=== PATIENT | female | born 1955 | race Caucasian/White ===

== ENCOUNTER 2018-05-12 11:52 | Emergency (ER) | payer BC ==
[2018-05-12 12:06] VITALS: RESP 18
[2018-05-12] MEDS ORDERED: SODIUM CHLORIDE 0.9% 1,000 ML IV STA (12:18)
--- NOTE | 2018-05-12 12:26 | ED ---
General Adult HPI - General Chief complaint: Back Pain/Injury Stated complaint: Kidney Stones Time Seen by Provider: 05/12/18 12:09 Source: patient, RN notes reviewed Mode of arrival: ambulatory Limitations: no limitations - History of Present Illness Initial comments: 62-year-old female presents to the emergency department for a chief complaint of right-sided low back pain 4 days. Patient was diagnosed one month ago with a kidney stone on the left side. Left side pain has significantly improved but right side pain started 4 days ago. Patient describes the pain as an aching pain that sometimes radiates down to her right hip. Patient states walking makes it worse. Patient denies nausea or vomiting at this time. Patient denies any recent diarrhea. Patient last had a bowel movement today and it was of normal consistency. Patient denies any abdominal pain. Patient has had back surgery in the past. Patient denies any injuries to the right hip. Patient states she saw her primary care provider for this 3 days ago and was told to follow-up with urology. Patient attempted to make an appointment with urology but they could not get her in until 6 weeks from now. Patient has no other complaints at this time including shortness of breath, chest pain, nausea or vomiting, headache, or visual changes. - Related Data Home Medications Medication Instructions Recorded Confirmed Levothyroxine Sodium [Synthroid] 137 mcg PO DAILY 05/12/18 05/12/18 Previous Rx's Medication Instructions Recorded Acetaminophen [Tylenol] 500 mg PO Q4-6H PRN #20 tab 05/12/18 Ibuprofen [Motrin] 600 mg PO Q8HR PRN #20 tab 05/12/18 Allergies Allergy/AdvReac Type Severity Reaction Status Date / Time No Known Allergies Allergy Verified 05/12/18 12:26 Review of Systems ROS Statement: Those systems with pertinent positive or pertinent negative responses have been documented in the HPI. ROS Other: All systems not noted in ROS Statement are negative. Past Medical History Past Medical History: Thyroid Disorder History of Any Multi-Drug Resistant Organisms: None Reported Past Surgical History: Back Surgery, Hysterectomy Past Psychological History: No Psychological Hx Reported Smoking Status: Current every day smoker Past Alcohol Use History: Rare Past Drug Use History: None Reported General Exam Limitations: no limitations General appearance: alert, in no apparent distress Eye exam: Present: normal appearance, PERRL, EOMI. Absent: scleral icterus, conjunctival injection, periorbital swelling ENT exam: Present: normal exam, normal oropharynx, mucous membranes moist, TM's normal bilaterally, normal external ear exam Neck exam: Present: normal inspection, full ROM. Absent: tenderness, meningismus, lymphadenopathy Respiratory exam: Present: normal lung sounds bilaterally. Absent: respiratory distress, wheezes, rales, rhonchi, stridor Cardiovascular Exam: Present: regular rate, normal rhythm, normal heart sounds. Absent: systolic murmur, diastolic murmur, rubs, gallop, clicks GI/Abdominal exam: Present: soft, normal bowel sounds. Absent: distended, tenderness (No tenderness in the abdomen to light or deep palpation), guarding, rebound, rigid, other (Negative obturator, psoas signs. No McBurney point tenderness) Back exam: Present: full ROM (Full range of motion of the pain in the right lower back is exacerbated with flexion of the right hip), tenderness ( Tenderness to the right SI joint tenderness to the right SI joint). Absent: CVA tenderness (R), CVA tenderness (L), vertebral tenderness (No tenderness over the lumbar spine) Course Vital Signs 05/12/18 12:03 Temperature 98.3 F Pulse Rate 57 L Respiratory 18 Rate Blood Pressure 153/77 O2 Sat by Pulse 99 Oximetry Medical Decision Making - Medical Decision Making 62-year-old female presents to the emergency department for right low back pain 4 days. Patient was diagnosed with a left-sided kidney stone 1 month which has resolved. Patient thinks she has a right-sided kidney stone at this point. Patient saw primary care provider for this and was told to follow-up with urology. She cannot get an appointment until 6 weeks from now. Patient states walking makes it worse. Patient denies abdominal pain. No fevers or chills. On exam patient has some right-sided back pain over the right SI joint. Pain is exacerbated with flexion of the right hip. No tenderness to palpation of the abdomen. CBC and CMP are unremarkable. Amylase lipase WNL. Urinalysis shows no blood or signs of infection. X-ray of the right hip and pelvis shows no acute fractures or dislocations. Postsurgical changes of the lumbosacral region. No focal lytic or sclerotic lesion in the proximal right femur. Moderate-sized spur super or lateral aspect of the acetabulum right hip is present. Lumbar spine x-ray shows severe degenerative disc disease and L4 to L5. CT not needed at this point as there is no blood in urine and patient denies abdominal pain and there is no abdominal tenderness on exam. Patient likely has right hip pain causing SI joint pain. She will follow up with orthopedic doctor that she is already established with. She will return if she has any worsening symptoms. - Lab Data Result diagrams: 05/12/18 12:35 05/12/18 12:35 Lab Results 05/12/18 05/12/18 05/12/18 Range/Units 12:35 12:35 12:35 WBC 5.0 (3.8-10.6) k/uL RBC 4.43 (3.80-5.40) m/uL Hgb 14.6 (11.4-16.0) gm/dL Hct 41.5 (34.0-46.0) % MCV 93.7 (80.0-100.0) fL MCH 32.9 (25.0-35.0) pg MCHC 35.2 (31.0-37.0) g/dL RDW 11.9 (11.5-15.5) % Plt Count 221 (150-450) k/uL Neutrophils % 60 % Lymphocytes % 29 % Monocytes % 6 % Eosinophils % 2 % Basophils % 1 % Neutrophils # 3.0 (1.3-7.7) k/uL Lymphocytes # 1.5 (1.0-4.8) k/uL Monocytes # 0.3 (0-1.0) k/uL Eosinophils # 0.1 (0-0.7) k/uL Basophils # 0.0 (0-0.2) k/uL Sodium 143 (137-145) mmol/L Potassium 4.0 (3.5-5.1) mmol/L Chloride 109 H (98-107) mmol/L Carbon Dioxide 24 (22-30) mmol/L Anion Gap 10 mmol/L BUN 13 (7-17) mg/dL Creatinine 0.72 (0.52-1.04) mg/dL Est GFR (CKD-EPI)AfAm >90 (>60 ml/min/1.73 sqM) Est GFR (CKD-EPI)NonAf >90 (>60 ml/min/1.73 sqM) Glucose 95 (74-99) mg/dL Calcium 9.4 (8.4-10.2) mg/dL Total Bilirubin 0.8 (0.2-1.3) mg/dL AST 29 (14-36) U/L ALT 37 (9-52) U/L Alkaline Phosphatase 59 (38-126) U/L Total Protein 7.0 (6.3-8.2) g/dL Albumin 4.3 (3.5-5.0) g/dL Amylase 68 (30-110) U/L Lipase 149 (23-300) U/L Urine Color Colorless Urine Appearance Clear (Clear) Urine pH 5.0 (5.0-8.0) Ur Specific [place] 1.003 (1.001-1.035) Urine Protein Negative (Negative) Urine Glucose (UA) Negative (Negative) Urine Ketones Negative (Negative) Urine Blood Negative (Negative) Urine Nitrite Negative (Negative) Urine Bilirubin Negative (Negative) Urine Urobilinogen <2.0 (<2.0) mg/dL Ur Leukocyte Esterase Negative (Negative) Disposition Clinical Impression: Hip pain Disposition: HOME SELF-CARE Condition: Good Instructions: Hip Pain (ED), Lower Back Exercises (ED) Additional Instructions: Please take Motrin and Tylenol as needed as directed. Please follow-up with orthopedic doctor. Please also follow up with primary care in 1-2 days. Return to the emergency department if you have any worsening symptoms. Prescriptions: Acetaminophen [Tylenol] 500 mg PO Q4-6H PRN #20 tab PRN Reason: Pain Ibuprofen [Motrin] 600 mg PO Q8HR PRN #20 tab PRN Reason: Pain Is patient prescribed a controlled substance at d/c from ED?: No Referrals: Bobby Chambers MD [Primary Care Provider] - 1-2 days Time of Disposition: 13:39
[2018-05-12 12:51] LABS: Basophils % (A) 1 %; Eosinophils # (A) 0.1 k/uL (0-0.7); Eosinophils % (A) 2 %; HCT 41.5 % (34.0-46.0); HGB 14.6 gm/dL (11.4-16.0); Lymphocytes # (A) 1.5 k/uL (1.0-4.8); Lymphocytes % (A) 29 %; MCH 32.9 pg (25.0-35.0); MCHC 35.2 g/dL (31.0-37.0); MCV 93.7 fL (80.0-100.0); Mean Platelet Volume 7.5; Monocytes # (A) 0.3 k/uL (0-1.0); Monocytes % (A) 6 %; Neutrophils % (A) 60 %; Platelet Count 221 k/uL (150-450); RBC 4.43 m/uL (3.80-5.40); RDW 11.9 % (11.5-15.5)
[2018-05-12 12:55] LABS: Appearance,Urine Clear (Clear); Bilirubin,Urine Negative (Negative); Blood,Urine Negative (Negative); Color,Urine Colorless; Glucose,Urine (UA) Negative (Negative); Ketones,Urine Negative (Negative); Leukocyte Esterase,Urine Negative (Negative); Nitrite,Urine Negative (Negative); Protein,Urine Negative (Negative); Specific Gravity,Urine 1.003 (1.001-1.035); Urobilinogen,Urine <2.0 mg/dL (<2.0)
[2018-05-12 13:02] LABS: ALT 37 U/L (9-52); AST 29 U/L (14-36); Albumin 4.3 g/dL (3.5-5.0); Alkaline Phosphatase 59 U/L (38-126); Amylase 68 U/L (30-110); Anion Gap 10 mmol/L; Blood Urea Nitrogen 13 mg/dL (7-17); Calcium 9.4 mg/dL (8.4-10.2); Carbon Dioxide 24 mmol/L (22-30); Chloride 109 mmol/L (98-107); Glucose 95 mg/dL (74-99); Lipase 149 U/L (23-300); Sodium 143 mmol/L (137-145); Total Bilirubin 0.8 mg/dL (0.2-1.3)
--- NOTE | 2018-05-12 13:05 | XR ---
EXAM TYPE: LUMBAR SPINE X RAY SERIES COMPARISON: NONE HISTORY: Back pain TECHNIQUE: 4 views are submitted. FINDINGS: Alignment is anatomic. The pedicles are intact. The transverse processes are intact. There is no s pondylolysis or spondylolisthesis. Postsurgical change at the lumbosacral junction with severe degen erative disc disease and posterior spondylosis L4-L5. Multilevel mild to moderate degenerative disc d isease and facet arthropathy. Diffuse osteopenia noted. IMPRESSION: 1. Postsurgical changes L5-S1. 2. Severe degenerative disc disease L4-L5.
--- NOTE | 2018-05-12 13:07 | XR ---
EXAMINATION TYPE: XR KUB DATE OF EXAM: 05/12/2018 COMPARISON: NONE HISTORY: Right flank pain TECHNIQUE: One view abdominal series FINDINGS: The osseous structures are intact. The bowel gas pattern is nonspecific. Lung bases are clear. Hear t appears to be enlarged. Hypertrophic and degenerative change of the spine with postsurgical change of the lumbosacral junction. Arthropathy of the hip joints. Cannot calcifications in pelvis likely vascular. IMPRESSION: 1. Nonspecific abdomen.
--- NOTE | 2018-05-12 13:08 | XR ---
EXAMINATION TYPE: XR Hip RT and AP Pelvis DATE OF EXAM: 05/12/2018 COMPARISON: NONE HISTORY: Pelvis and right hip pain. TECHNIQUE: A single AP view of the pelvis is obtained. Two views of the right hip are obtained. FINDINGS: There is no acute fracture/dislocation evident in the pelvis. The sacroiliac joints appea r symmetric and unremarkable. There are some scattered left sided pelvic phleboliths. Post surgical change lumbosacral region is noted. Two views of right hip show no acute fracture or dislocation. No focal lytic or sclerotic lesion see n in the proximal right femur. Moderate size spur superolateral aspect of acetabulum right hip is pre sent. The overlying soft tissue is unremarkable. IMPRESSION: Some degenerative spurring right hip is present.
[2018-05-12 14:06] VITALS: BP 166/87; PULSE 53; TEMP 97.5
== END 2018-05-12 14:05 | disposition home or self-care (01) ==
LOC: EC 11:52
DX: M25.551 Pain in right hip (principal); M51.36 Other intervertebral disc degeneration, lumbar region; E07.9 Disorder of thyroid, unspecified; Z79.899 Other long term (current) drug therapy
CPT/HCPCS: 36415; 72100; 73502; 74018; 80053; 81003; 82150; 83690; 85025; 96360; 99283

== ENCOUNTER → 2018-11-10 | Outpatient (CLI) | payer BC ==
--- NOTE | 2018-11-10 14:27 | CT ---
EXAMINATION TYPE: CT abdomen wo/w con DATE OF EXAM: 11/10/2018 COMPARISON: NONE HISTORY: 63-year-old female mid/upper quad pain TECHNIQUE: Contiguous axial scanning of the abdomen before and after administration of 100 ml Isovue 300 IV contrast. Delayed images through the kidneys and coronal/sagittal reconstructions performed. CT DLP: 2016 mGycm Automated exposure control for dose reduction was used. FINDINGS: The heart is normal size without pericardial effusion. Some strandy areas of atelectasis in the lower lungs without pleural effusion. No focal liver lesion seen. No biliary ductal dilatation. Portal venous system is patent. Gallbladder, adrenal glands, kidneys, spleen, and mildly atrophic pancreas show no gross abnormality. No dilated small bowel, free fluid, or free air. Scattered nonenlarged mesenteric lymph nodes. Oral contrast has progressed to the mid transverse colon. There is mild overall stool burden. No bhargavi colonic inflammatory change. Bones: Partially visualized lower lumbar fusion hardware. Endplate spondylosis lower thoracic spine. IMPRESSION: NO ACUTE INFLAMMATORY PROCESS IDENTIFIED IN THE ABDOMEN OR PELVIS TO EXPLAIN PATIENT'S SYMPTOMS.
== END | disposition home or self-care (01) ==
LOC: RADCTMAIN 12:39
PROVIDERS: ATTEND Internal Medicine
DX: R10.11 Right upper quadrant pain (principal); R10.12 Left upper quadrant pain; R10.13 Epigastric pain; R11.0 Nausea
CPT/HCPCS: 74170; Q9967

== ENCOUNTER → 2019-05-11 | Outpatient (CLI) | payer BC ==
[2019-05-11 16:56] LABS: T4, Free (Free Thyroxine) 1.2 ng/dL (0.80-1.80)
== END | disposition home or self-care (01) ==
LOC: LABWHC1 09:19
PROVIDERS: ATTEND Obstetrics & Gynecology Obstetrics
DX: E03.9 Hypothyroidism, unspecified (principal)
CPT/HCPCS: 36415; 84439; 84443; 84481

== ENCOUNTER 2019-10-28 11:50 | Day surgery (SDC) | payer BC ==
[2019-10-26 09:27] VITALS: BMI 36.6
[~2019-10-28 11:50] MED LIST: LACTATED RINGERS 1,000 ML IV SCH
[2019-10-28] MEDS ORDERED: LIDOCAINE 1% 20 ML VIAL (10MG/ML) FOR IV START INTRADERMA ONE (12:30)
[2019-10-28 12:32] VITALS: RESP 18; TEMP 97.6
[2019-10-28] MEDS ORDERED: PROPOFOL 10 MG/ML 20 ML VIAL IV ONE (12:32)
[2019-10-28] MEDS ORDERED: LIDOCAINE 1% INJ 10MG/ML (20 ML MDV) ONE (12:32)
--- NOTE | 2019-10-28 12:49 | P.OP ---
Date of Procedure: 10/28/19 Preoperative Diagnosis: Screening colonoscopy Postoperative Diagnosis: Normal appearing colon Procedure(s) Performed: Colonoscopy Anesthesia: MAC Surgeon: Fuad Arvizu Estimated Blood Loss (ml): 0 Condition: stable Disposition: same day Description of Procedure: Patient is brought to the Endo suite placed in left lateral decubitus position underwent sedation per department of anesthesia timeout performed correct patient correct procedure correct site was verified rectal exam was performed no gross abnormalities are noted the scope was then passed from the rectum to the cecum with ease it was then slowly withdrawn make sure to visualize all lorenzo of the colon on the way out there is no gross abnormalities noted. The scope was then retroflexed in the rectum and no os abnormalities are noted scope was withdrawn patient tolerated the procedure well there are no apparent complications she'll need a repeat screening colonoscopy in 10 years.
[2019-10-28 13:17] VITALS: BP 113/76; PULSE 50
== END 2019-10-28 13:34 | disposition home or self-care (01) ==
LOC: ORWHC2ENDO 11:50
PROVIDERS: ATTEND Student in an Organized Health Care Education/Training Program
DX: Z12.11 Encounter for screening for malignant neoplasm of colon (principal); E07.9 Disorder of thyroid, unspecified; Z79.890 Hormone replacement therapy; Z98.890 Other specified postprocedural states; Z90.710 Acquired absence of both cervix and uterus
CPT/HCPCS: J2001; J2704; G0121

== ENCOUNTER → 2019-11-03 | Outpatient (CLI) | payer BC ==
--- NOTE | 2019-11-19 12:04 | MM ---
Reason for exam: screening (asymptomatic). Last mammogram was performed 1 year ago. History: Patient is postmenopausal. Family history of breast cancer in mother, breast cancer in sister, breast cancer in 2 maternal aunts, and breast cancer in paternal aunt. Physical Findings: A clinical breast exam by your physician is recommended on an annual basis and results should be correlated with mammographic findings. MG Screening Mammo w CAD Bilateral CC and MLO view(s) were taken. Prior study comparison: October 20, 2018, mammogram, performed at [facility]. October 14, 2017, mammogram, performed at [facility]. The breast tissue is heterogeneously dense. This may lower the sensitivity of mammography. There is chronic nodularity in the left breast. There is no discrete abnormality. ASSESSMENT: Benign, BI-RAD 2 RECOMMENDATION: Routine screening mammogram of both breasts in 1 year.
== END | disposition home or self-care (01) ==
LOC: RADMAMWWP 07:54
PROVIDERS: ATTEND Internal Medicine
DX: Z12.31 Encounter for screening mammogram for malignant neoplasm of breast (principal)
CPT/HCPCS: 77067

== ENCOUNTER → 2020-10-26 | Outpatient (CLI) | payer BC ==
--- NOTE | 2020-10-27 14:57 | MM ---
Reason for exam: screening (asymptomatic). Last mammogram was performed 1 year ago. History: Patient is postmenopausal. Family history of breast cancer in mother, breast cancer in sister, breast cancer in 2 maternal aunts, and breast cancer in paternal aunt. Physical Findings: A clinical breast exam by your physician is recommended on an annual basis and results should be correlated with mammographic findings. MG Screening Mammo w CAD Bilateral CC and MLO view(s) were taken. Prior study comparison: November 03, 2019, bilateral MG screening mammo w CAD. October 20, 2018, mammogram, performed at [facility]. There are scattered fibroglandular densities. No significant changes when compared with prior studies. ASSESSMENT: Benign, BI-RAD 2 RECOMMENDATION: Routine screening mammogram of both breasts in 1 year.
== END | disposition home or self-care (01) ==
LOC: RADMAMWWP 14:25
PROVIDERS: ATTEND Nurse Practitioner Adult Health
DX: Z12.31 Encounter for screening mammogram for malignant neoplasm of breast (principal)
CPT/HCPCS: 77067

== ENCOUNTER → 2022-01-03 | Outpatient (CLI) | payer BC ==
--- NOTE | 2022-01-04 14:28 | MM ---
Reason for exam: screening (asymptomatic). Last mammogram was performed 1 year and 2 months ago. History: Patient is postmenopausal. Family history of breast cancer in mother, breast cancer in sister, breast cancer in 2 maternal aunts, and breast cancer in paternal aunt. Physical Findings: A clinical breast exam by your physician is recommended on an annual basis and results should be correlated with mammographic findings. MG Screening Mammo w CAD Bilateral CC and MLO view(s) were taken. Prior study comparison: October 26, 2020, bilateral MG screening mammo w CAD. November 03, 2019, bilateral MG screening mammo w CAD. The breast tissue is heterogeneously dense. This may lower the sensitivity of mammography. There is chronic nodularity in the left breast, stable. No significant changes when compared with prior studies. ASSESSMENT: Benign, BI-RAD 2 RECOMMENDATION: Routine screening mammogram of both breasts in 1 year.
== END | disposition home or self-care (01) ==
LOC: RADMAMWWP 09:56
PROVIDERS: ATTEND Family Medicine
DX: Z12.31 Encounter for screening mammogram for malignant neoplasm of breast (principal); Z78.0 Asymptomatic menopausal state; Z80.3 Family history of malignant neoplasm of breast
CPT/HCPCS: 77067

== ENCOUNTER → 2022-11-27 | Outpatient (CLI) | payer MEDICARE, OTHER ==
--- NOTE | 2022-11-27 12:27 | BD ---
EXAMINATION TYPE: Axial Bone Density DATE OF EXAM: 11/27/2022 COMPARISON: FIRST DEXA AT [facility] CLINICAL HISTORY: 67 years year old Female. ICD-10 CODE: Z78.0 ASYMPTOMATIC MENOPAUSAL STATE Height: 65IN Weight: 243LB FRAX RISK QUESTIONS: Family History (Parent hip fracture): YES History of Fracture in Adulthood: YES Secondary Osteoporosis: RISK FACTORS HISTORY OF: Surgery to Spine: YES LUMBAR When: 15 YEARS AGO Family History of Osteoporosis: YES Active: YES Postmenopausal woman: YES MEDICATIONS: Thyroid Medications: Which medication: Synthroid How Lon YEARS Additional Medications: MULTIVITAMIN Additional History: THYROID REMOVED 30 YEARS AGO Bone mineral density about the R hip (g/cm2): 0.841 Bone mineral density about the L hip (g/cm2): 0.905 T Score values are as follows: -----R Neck: -1.9 -----L Neck: -1.6 -----R Total: -1.3 -----L Total: -0.8 FIRST BONE DENSITY AT [facility] FRAX%s: The graph provided illustrates a 27.1% chance for a major osteoporotic fx and a 2.2% chance f or the hips probability for fx in 10 years time. IMPRESSION: Osteopenia (T Score between -2.5 and -1). There is slightly increased risk of fracture and the patient may be considered for treatment. Re-Screen 2-5 years. NOTE: T-SCORE=SD OF THE YOUNG ADULT MEAN.
--- NOTE | 2022-11-28 09:16 | MM ---
Reason for Exam: Screening (asymptomatic). Last screening mammogram was performed 11 month(s) ago. Patient History: Menarche at age 14. First Full-Term at age 29. Left ovary removed at age 52. Right ovary removed at age 52. Hysterectomy at age 52. Postmenopausal. Paternal aunt had breast cancer. Maternal aunt had breast cancer. Maternal aunt had breast cancer. Sister had breast cancer. Mother had breast cancer. Risk Values: Melida 5 year model risk: 5.7%. NCI Lifetime model risk: 20.2%. Prior Study Comparison: 11/03/2019 Bilateral Screening Mammogram, [facility]. 10/26/2020 Bilateral Screening Mammogram, [facility]. 01/03/2022 Bilateral Screening Mammogram, [facility]. Tissue Density: The breast tissue is heterogeneously dense. This may lower the sensitivity of mammography. Findings: Analyzed By CAD. There is no suspicious group of microcalcifications or new suspicious mass in either breast. Chronic nodularity in the left breast is stable. Overall Assessment: Benign, BI-RAD 2 Management: Screening Mammogram of both breasts in 1 year. A clinical breast exam by your physician is recommended on an annual basis and results should be correlated with mammographic findings. Electronically signed and approved by: Demetrius Mcwilliams D.O.
== END | disposition home or self-care (01) ==
LOC: RADMAMWWP 10:50
PROVIDERS: ATTEND Internal Medicine
DX: Z12.31 Encounter for screening mammogram for malignant neoplasm of breast (principal); Z13.820 Encounter for screening for osteoporosis; M85.89 Other specified disorders of bone density and structure, multiple sites; Z78.0 Asymptomatic menopausal state; Z80.3 Family history of malignant neoplasm of breast
CPT/HCPCS: 77063; 77067; 77080

== ENCOUNTER → 2023-10-04 | Outpatient (CLI) | payer MEDICARE, OTHER ==
[2023-10-04 22:59] LABS: Basophils # (A) 0.06 X 10*3/uL (0.00-0.10); Basophils % (A) 0.9 %; Eosinophils # (A) 0.08 X 10*3/uL (0.04-0.35); Eosinophils % (A) 1.3 %; HCT 43.8 % (37.2-46.3); HGB 14.6 g/dL (12.0-15.0); Lymphocytes # (A) 1.37 X 10*3/uL (0.90-5.00); Lymphocytes % (A) 21.5 %; MCH 32.9 pg (27.0-32.0); MCHC 33.3 g/dL (32.0-37.0); MCV 98.6 FL (80.0-97.0); Mean Platelet Volume 10.2 FL (9.5-12.2); Monocytes # (A) 0.56 X 10*3/uL (0.20-1.00); Monocytes % (A) 8.8 %; NRBC Per 100 WBC 0.03 X 10*3/uL (0.00-0.01); Neutrophils # (A) 4.28 X 10*3/uL (1.80-7.70); Neutrophils % (A) 67.3 %; Platelet Count 266 X 10*3/uL (140-440); RBC 4.44 X 10*6/uL (4.10-5.20); RDW 12.4 % (11.5-14.5); WBC 6.36 X 10*3/uL (4.50-10.00)
[2023-10-04 23:40] LABS: ALT 23 U/L (8-44); AST 23 U/L (13-35); Albumin 4.1 g/dL (3.8-4.9); Albumin/Globulin Ratio 1.58 Ratio (1.60-3.17); Alkaline Phosphatase 67 U/L (41-126); BUN/Creat Ratio 13.88 Ratio (12.00-20.00); Blood Urea Nitrogen 11.1 mg/dL (9.0-27.0); Calcium 9.2 mg/dL (8.7-10.3); Carbon Dioxide 23.7 mmol/L (21.6-31.8); Chloride 105 mmol/L (96-109); Chol/HDL Ratio 2.39 Ratio; Globulin 2.6 g/dL (1.6-3.3); Glucose 97 mg/dL (70-110); Potassium 4.3 mmol/L (3.5-5.5); Sodium 141 mmol/L (135-145); Total Bilirubin 0.4 mg/dL (0.3-1.2); Total Protein 6.7 g/dL (6.2-8.2); VLDL Calculation 13.98 mg/dL (5.00-40.00)
[2023-10-05 00:13] LABS: T4, Free (Free Thyroxine) 1.86 ng/dL (0.80-1.80)
== END | disposition home or self-care (01) ==
LOC: LABWHC1 08:55
PROVIDERS: ATTEND Internal Medicine
DX: Z11.59 Encounter for screening for other viral diseases (principal); M54.9 Dorsalgia, unspecified; E03.9 Hypothyroidism, unspecified; M85.80 Other specified disorders of bone density and structure, unspecified site
CPT/HCPCS: 36415; 80053; 80061; 82306; 84439; 84443; 85025; 86803

== ENCOUNTER → 2023-10-04 | Outpatient (CLI) | payer MEDICARE, OTHER ==
--- NOTE | 2023-10-04 10:12 | XR ---
EXAMINATION TYPE: XR KUB DATE OF EXAM: 10/04/2023 9:53 AM CLINICAL INDICATION:Female, 68 years old with history of M54.9 BACK PAIN; [facility] COMPARISON: 05/12/2018 TECHNIQUE: One radiographic view of the abdomen was obtained. FINDINGS: The bowel gas pattern is nonspecific without dilated loops of small or large bowel. There i s no evidence for organomegaly or pneumoperitoneum. The osseous structures are intact. No abnormal calcifications are present. Fecal material and gas are demonstrated throughout the colon and rectum. Postsurgical changes to L5-S1. Hardware appears intact. IMPRESSION: Nonspecific bowel gas pattern without radiographic evidence for acute process.
== END | disposition home or self-care (01) ==
LOC: RADXRMAIN 09:36
PROVIDERS: ATTEND Internal Medicine
DX: R14.0 Abdominal distension (gaseous) (principal)
CPT/HCPCS: 74018

== ENCOUNTER → 2023-12-05 | Outpatient (CLI) | payer MEDICARE, OTHER ==
--- NOTE | 2023-12-08 17:07 | MM ---
Reason for Exam: Screening (asymptomatic). Last screening mammogram was performed 12 month(s) ago. Patient History: Menarche at age 14. First Full-Term at age 29. Left ovary removed at age 52. Right ovary removed at age 52. Hysterectomy at age 52. Postmenopausal. Paternal aunt had breast cancer. Maternal aunt had breast cancer. Maternal aunt had breast cancer. Sister had breast cancer. Mother had breast cancer. Risk Values: Melida 5 year model risk: 5.8%. NCI Lifetime model risk: 19.5%. Prior Study Comparison: 10/26/2020 Bilateral Screening Mammogram, [facility]. 01/03/2022 Bilateral Screening Mammogram, [facility]. 11/27/2022 Bilateral MG 3D screening mammo w/cad, [facility]. Tissue Density: There are scattered fibroglandular densities. Findings: Analyzed By CAD. Unchanged benign intramammary lymph node on the left. There is no suspicious group of microcalcifications or new suspicious mass in either breast. Overall Assessment: Benign, BI-RAD 2 Management: Screening Mammogram of both breasts in 1 year. See note below in regards to patient's increased 5 year Melida score. Patient should continue monthly self-breast exams. A clinical breast exam by your physician is recommended on an annual basis. This exam should not preclude additional follow-up of suspicious palpable abnormalities. Note on Melida scores and lifetime risk: 1. A Melida score greater than 3% is considered moderate risk. If this is the case, consider specialist referral to assess eligibility for a risk reducing agent. 2. If overall lifetime risk for the development of breast cancer is 20% or higher, the patient may qualify for future screening with alternating mammogram and breast MRI. Electronically signed and approved by: Gabriela Vincent M.D. Radiologist
== END | disposition home or self-care (01) ==
LOC: RADMAMWWP 10:46
PROVIDERS: ATTEND Internal Medicine
DX: Z12.31 Encounter for screening mammogram for malignant neoplasm of breast (principal); Z78.0 Asymptomatic menopausal state; Z80.3 Family history of malignant neoplasm of breast
CPT/HCPCS: 77063; 77067

== ENCOUNTER 2024-07-02 10:14 | Emergency (ER) | payer MEDICARE, OTHER ==
[2024-07-02] MEDS ORDERED: SODIUM CHLORIDE 0.9% 1,000 ML BAG ONE (11:15)
[2024-07-02] MEDS ORDERED: ONDANSETRON 4 MG/2 ML VIAL ONE (11:23)
== END 2024-07-02 16:30 | disposition home or self-care (01) ==
LOC: EC 10:14
DX: R10.84 Generalized abdominal pain (principal)
CPT/HCPCS: 96361; 96374; 99284

== ENCOUNTER 2024-07-14 22:35 | Observation (INO) | payer MEDICARE, OTHER ==
[~2024-07-14 22:35] MED LIST changes: +ACETAMINOPHEN TAB 325 MG TAB ONE; -LACTATED RINGERS 1,000 ML IV SCH; +ONDANSETRON 4 MG/2 ML VIAL ONE
[2024-07-14] MEDS ORDERED: PANTOPRAZOLE 40 MG/10 ML VIAL ONE (23:09)
[2024-07-14] MEDS ORDERED: SODIUM CHLORIDE 0.9% 1,000 ML BAG ONE (23:59)
[2024-07-15] MEDS ORDERED: ACETAMINOPHEN TAB 325 MG TAB ONE ×2 (02:50→11:47)
[2024-07-15] MEDS ORDERED: LEVOTHYROXINE 100 MCG TAB ONE (05:58)
[2024-07-15] MEDS ORDERED: LEVOTHYROXINE 50 MCG TAB ONE (05:58)
[2024-07-15] MEDS ORDERED: PANTOPRAZOLE 40 MG TABLET PO ONE (05:58)
[2024-07-16] MEDS ORDERED: LEVOTHYROXINE 50 MCG TAB ONE (05:55)
[2024-07-16] MEDS ORDERED: PANTOPRAZOLE 40 MG TABLET PO ONE (07:57)
--- NOTE | 2024-08-10 12:18 | CT ---
EXAM: CT abdomen pelvis with IV contrast. DATE: 07/02/2024 INDICATION: Patient age:SAM MILAN : 1955 Reason for study: ABD/PEL With contrast, Abd pain, nausea, x 1month. ISOVIEW 300 100 ML, DLP: 1389 COMPARISON: None, please note PACS downtime occurred during the radiologist interpretation of these i mages with limited priors/reports.. TECHNIQUE: CT abdomen pelvis with contrast with axial imaging and sagittal and coronal reformats following the a dministration of 100 cc of Isovue 300 IV contrast material.. One or more CT dose reduction strategies were utilized during this examination. Total DLP administered was 1389 mGycm. FINDINGS: LOWER CHEST: Elevated left diaphragm. ABDOMEN LIVER: Unremarkable GALLBLADDER AND BILE DUCTS: Unremarkable. PANCREAS: Unremarkable. SPLEEN: Unremarkable. ADRENAL GLANDS: Unremarkable. KIDNEYS AND URETERS: No evidence of hydronephrosis or renal calculus. The ureters are unremarkable. PELVIS BLADDER: Unremarkable REPRODUCTIVE: The uterus is surgically absent. ABDOMEN & PELVIS STOMACH AND BOWEL: Stomach and duodenum are unremarkable. No evidence of bowel obstruction. PERITONEUM: No evidence of pneumoperitoneum or free fluid. VASCULATURE: No evidence of aortic aneurysm. MUSCULOSKELETAL: No acute osseous abnormalities fixation hardware in the spine appears intact.1 LYMPH NODES: No gross evidence for lymphadenopathy. SOFT TISSUE/ABDOMINAL WALL: Unremarkable IMPRESSION: No evidence for acute process. No evidence for bowel obstruction. [facility], , 08/10/2024 12:16 PM
== END 2024-07-16 11:52 | disposition home or self-care (01) ==
LOC: 3NCARDOBS 22:35 → 3SCARD 22:47 → UNDOADMOB 22:47 → UNDODISOB 07-15 00:24
PROVIDERS: ADMIT Internal Medicine; ATTEND Internal Medicine
DX: K62.5 Hemorrhage of anus and rectum (principal); G89.29 Other chronic pain; R10.30 Lower abdominal pain, unspecified; I48.91 Unspecified atrial fibrillation; K21.9 Gastro-esophageal reflux disease without esophagitis; E03.9 Hypothyroidism, unspecified; R63.4 Abnormal weight loss; R51.9 Headache, unspecified; R00.1 Bradycardia, unspecified; Z79.890 Hormone replacement therapy; Z79.899 Other long term (current) drug therapy; Z87.11 Personal history of peptic ulcer disease
CPT/HCPCS: 86850; 86900; 86901; 96374; 96375; 99285

== ENCOUNTER → 2024-10-01 | Outpatient (CLI) | payer MEDICARE, OTHER ==
--- NOTE | 2024-10-01 12:08 | FL ---
EXAMINATION TYPE: FL UGI w small bowel DATE OF EXAM: 10/01/2024 COMPARISON: CT scan 07/12/2024 CLINICAL INDICATION: Female, 69 years old with history of R63.4 ABNORMAL WEIGHT LOSS; [facility], TECHNIQUE: A double contrast UGI study is performed with small bowel follow through. A total of 1 m inute 25 seconds of fluoroscopic time was utilized during procedure and 25 images obtained. Total do se area product (DAP) in uGy*m?, mGy*cm? (or similar): Not provided. FINDINGS: Aeronautics Teacher image of the abdomen shows nonspecific gas pattern. Arthropathy of the hips. Postop changes of vertebral column.. The esophagus shows normal motility and emptying into the stomach. No evidence of hiatal hernia or s tricture noted. The stomach shows normal distensibility, peristalsis, and mucosal folds. No evidence of any mass or ulcer disease. No significant esophageal reflux was seen during real time performance of this study. The duodenal bulb and sweep are unremarkable. The small bowel study shows normal transit to the colon in less than 30 minutes. There is normal muc osal fold pattern throughout the small bowel. There is no evidence of any stricture or filling defec t noted. The terminal ileum is unremarkable. IMPRESSION: Normal upper GI study and small bowel follow through. [facility], , 10/01/2024 12:06 PM
== END | disposition home or self-care (01) ==
LOC: RADFLMAIN 09:08
PROVIDERS: ATTEND Internal Medicine Gastroenterology
DX: R63.4 Abnormal weight loss (principal)
CPT/HCPCS: 74240; 74248

== ENCOUNTER → 2024-10-12 | Outpatient (CLI) | payer MEDICARE, OTHER ==
--- NOTE | 2024-10-12 09:36 | XR ---
EXAMINATION TYPE: XR chest 2V DATE OF EXAM: 10/12/2024 CLINICAL HISTORY: R63.4 ABNORMAL WEIGHT LOSS Z00.00 E03.9 M85.80 TECHNIQUE: Frontal and lateral views of the chest are obtained. COMPARISON: 02/01/2023 FINDINGS: There is no focal air space opacity, pleural effusion, or pneumothorax seen. The cardiac silhouette size is within normal limits. The osseous structures are intact. IMPRESSION: No acute cardiopulmonary process. [facility], , 10/12/2024 9:33 AM
[2024-10-12 09:41] LABS: Basophils # (A) 0.1 k/uL (0-0.2); Basophils % (A) 2 %; Eosinophils # (A) 0.2 k/uL (0-0.7); Eosinophils % (A) 3 %; HCT 43.9 % (34.0-46.0); Lymphocytes # (A) 1.2 k/uL (1.0-4.8); Lymphocytes % (A) 22 %; MCH 33.2 pg (25.0-35.0); MCHC 34.2 g/dL (31.0-37.0); Mean Platelet Volume 7.6; Monocytes # (A) 0.3 k/uL (0-1.0); Monocytes % (A) 6 %; Neutrophils # (A) 3.6 k/uL (1.3-7.7); Neutrophils % (A) 66 %; Platelet Count 260 k/uL (150-450); RBC 4.53 m/uL (3.80-5.40); RDW 12.8 % (11.5-15.5); WBC 5.5 k/uL (3.8-10.6)
[2024-10-12 15:39] LABS: Protein, Total 6.6 g/dL (6.2-8.2)
[2024-10-12 15:52] LABS: Hepatitis C IgG Antibody Nonreactive (Nonreactive)
[2024-10-12 16:15] LABS: ALT 18 U/L (8-44); AST 21 U/L (13-35); Albumin 4.2 g/dL (3.8-4.9); Albumin/Globulin Ratio 1.75 Ratio (1.60-3.17); Alkaline Phosphatase 61 U/L (41-126); BUN/Creat Ratio 18.43 Ratio (12.00-20.00); Blood Urea Nitrogen 12.9 mg/dL (9.0-27.0); Calcium 9.4 mg/dL (8.7-10.3); Carbon Dioxide 22.3 mmol/L (21.6-31.8); Chloride 109 mmol/L (96-109); Chol/HDL Ratio 2.38 Ratio; Globulin 2.4 g/dL (1.6-3.3); Glucose 103 mg/dL (70-110); LDL Cholesterol,Calculated 89.9 mg/dL (0.0-131.0); Potassium 4.1 mmol/L (3.5-5.5); Sodium 143 mmol/L (135-145); T4, Free (Free Thyroxine) 1.78 ng/dL (0.80-1.80); Total Bilirubin 0.7 mg/dL (0.3-1.2); Total Protein 6.6 g/dL (6.2-8.2)
[2024-10-12 19:36] LABS: HIV 2 AB Non-Reactive (Non-Reactive); HIV AB P24 Non-Reactive (Non-Reactive); HIV P24 AG Non-Reactive (Non-Reactive)
== END | disposition home or self-care (01) ==
LOC: LABWHC1 08:55
PROVIDERS: ATTEND Internal Medicine
DX: Z00.00 Encounter for general adult medical examination without abnormal findings (principal); E03.9 Hypothyroidism, unspecified; M85.80 Other specified disorders of bone density and structure, unspecified site; R63.4 Abnormal weight loss
CPT/HCPCS: 36415; 71046; 80053; 80061; 82306; 82533; 84165; 84439; 84443; 85025; 86038; 86334; 86803; 87390

== ENCOUNTER → 2024-10-28 | Outpatient (CLI) | payer MEDICARE, OTHER ==
--- NOTE | 2024-10-28 14:43 | US ---
EXAMINATION TYPE: US kidneys/renal and bladder DATE OF EXAM: 10/28/2024 COMPARISON: CT abdomen and pelvis 08/04/2024 CLINICAL INDICATION: Female, 69 years old with history of R30.0 Dysuria; dysuria TECHNIQUE: Grayscale imaging of the bilateral kidneys and urinary bladder: FINDINGS: EXAM MEASUREMENTS: Right Kidney: 10.3 x 5.0 x 4.7 cm Left Kidney: 10.6 x 6.2 x 4.9 cm *limitations due to overlying bowel gas Right Kidney: no evidence of hydronephrosis Left Kidney: no evidence of hydronephrosis Bladder: appears wnl Bilateral Jets seen: no There is no evidence for hydronephrosis at this point in time. Corticomedullary differentiation is ma intained bilaterally. No nephrolithiasis is seen. No masses are identified. The urinary bladder is anechoic. The ureteral jets are not identified. IMPRESSION: No hydronephrosis or nephrolithiasis. [facility], , 10/28/2024 2:40 PM
== END | disposition home or self-care (01) ==
LOC: RADUSWWP 13:15
PROVIDERS: ATTEND Internal Medicine
DX: R30.0 Dysuria (principal)
CPT/HCPCS: 76770

== ENCOUNTER → 2024-12-10 | Outpatient (CLI) | payer MEDICARE, OTHER ==
--- NOTE | 2024-12-10 11:09 | MM ---
Reason for Exam: Screening (asymptomatic). Last screening mammogram was performed 12 month(s) ago. Patient History: Menarche at age 14. First Full-Term at age 29. Left ovary removed at age 52. Right ovary removed at age 52. Hysterectomy at age 52. Postmenopausal. Paternal aunt had breast cancer. Maternal aunt had breast cancer. Maternal aunt had breast cancer. Sister had breast cancer. Mother had breast cancer. Risk Values: Melida 5 year model risk: 5.8%. NCI Lifetime model risk: 18.8%. Prior Study Comparison: 01/03/2022 Bilateral Screening Mammogram, [facility]. 11/27/2022 Bilateral MG 3D screening mammo w/cad, [facility]. 12/05/2023 Bilateral MG 3D screening mammo w/cad, [facility]. Tissue Density: The breasts are heterogeneously dense, which may obscure small masses. Findings: Analyzed By CAD. Benign-appearing vascular calcification bilaterally is redemonstrated. There is stable 5 mm circumscribed mass in the of the left breast from several prior mammograms. There is no suspicious group of microcalcifications or new suspicious mass in either breast. Overall Assessment: Benign, BI-RAD 2 Management: Screening Mammogram of both breasts in 1 year. . Patient should continue monthly self-breast exams. A clinical breast exam by your physician is recommended on an annual basis. This exam should not preclude additional follow-up of suspicious palpable abnormalities. Note on Melida scores and lifetime risk: 1. A Melida score greater than 3% is considered moderate risk. If this is the case, consider specialist referral to assess eligibility for a risk reducing agent. 2. If overall lifetime risk for the development of breast cancer is 20% or higher, the patient may qualify for future screening with alternating mammogram and breast MRI. [facility], , 12/10/2024 11:06 AM. Electronically signed and approved by: Chaparro Costa M.D.
--- NOTE | 2024-12-10 11:14 | BD ---
EXAMINATION TYPE: Axial Bone Density DATE OF EXAM: 12/10/2024 CLINICAL HISTORY: 69 years old Female. ICD-10 CODE: M85.80 OSTEOPENIA , Additional History: Height: 65 Weight: 193.4 FRAX RISK QUESTIONS: Alcohol (3 or more units per day): no Family History (Parent hip fracture): yes Glucocorticoids (More than 3mos): no (Ex: prednisone, prednisolone, methylprednisolone, dexamethasone, and hydrocortisone). History of Fracture in Adulthood: yes Secondary Osteoporosis: 1. Type 1 Diabetes: no 2. Hyperthyroidism: no 3. Menopause before 45: no 4. Malnutrition: no 5. Chronic liver disease: no Rheumatoid Arthritis: no Current Tobacco Use: no RISK FACTORS HISTORY OF: Surgery to Spine/Hip(right/left)/Wrist (right/left): lumbar spine left wrist fx MEDICATIONS: Thyroid Medications: synthroid How Long: many years EXAM MEASUREMENTS: Bone mineral densitometry was performed using the [employer] System. Bone mineral density about the R hip (g/cm2): 0.790 Bone mineral density about the L hip (g/cm2): 0.825 T Score values are as follows: -----R Neck: -2.0 -----L Neck: -1.6 -----R Total: -1.7 -----L Total: -1.5 Z Score values are as follows: -----R Neck: -0.9 -----L Neck: -0.5 -----R Total: -0.9 -----L Total: -0.7 Bone mineral density has: decreased -7.4 % since study of: 11.27.2022 Bone mineral density about the R Wrist (g/cm2): 0.480 T Score values are as follows: -----Dist. R+U: -4.0 -----Prox. R+U: -1.7 -----Radius total: -3.2 Z Score values are as follows: -----Dist. R+U: -2.4 -----Prox. R+U: -0.1 -----Radius total: -1.6 Bone mineral density : baseline FRAX%s: The graph provided illustrates a 28.5% chance for a major osteoporotic fx and a 4.1% chance f or the hips probability for fx in 10 years time. IMPRESSION: Osteoporosis (T Score less than -2.5) at level of the wrist. There is increased fracture risk and therapy is usually indicated based on age. Re-Screen 1-2 years. NOTE: T-SCORE=SD OF THE YOUNG ADULT MEAN. [facility], , 12/10/2024 11:12 AM
== END | disposition home or self-care (01) ==
LOC: RADMAMWWP 10:08
PROVIDERS: ATTEND Internal Medicine
DX: Z12.31 Encounter for screening mammogram for malignant neoplasm of breast (principal); M85.80 Other specified disorders of bone density and structure, unspecified site; M81.8 Other osteoporosis without current pathological fracture; Z78.0 Asymptomatic menopausal state; Z80.3 Family history of malignant neoplasm of breast; R92.333 Mammographic heterogeneous density, bilateral breasts; Z90.722 Acquired absence of ovaries, bilateral
CPT/HCPCS: 77063; 77067; 77080

== ENCOUNTER → 2024-12-20 | Outpatient (CLI) | payer MEDICARE, OTHER ==
--- NOTE | 2024-12-20 13:36 | XR ---
EXAMINATION TYPE: XR bone survey complete DATE OF EXAM: 12/20/2024 COMPARISON: NONE CLINICAL INDICATION: Female, 69 years old with history of D47.2 MONOCLONAL GAMMOPATHY R63.4 ABNORMAL E03.9; TECHNIQUE: 16 VIEWS FINDINGS: Chest: Heart normal size. No consolidation or pleural effusion. No lytic rib or clavicular lesion is identified. Cervical spine: Moderate to severe disc/endplate degenerative change C5-C7 levels. Degenerative grade 1 retrolisthesis C5-C6 and C6-C7. Facet and uncovertebral joint arthropathy lower cervical spine. So me heterotopic ossification along the posterior midline mid to lower cervical spine. No discrete lyti c lesion is seen. Calvarium: No discrete punched out lytic lesions are identified. The visualized mandible also appears clear. Scattered arachnoid granulations/venous lakes are suggested. Humeri: No discrete lytic lesion or endosteal scalloping. Thoracic spine:12 rib bearing thoracic vertebral bodies. All pedicles are visualized. Mild to moderat e degenerative disc disease mid thoracic spine. Vertebral body heights are preserved and alignment is maintained. Lumbar spine: Patient status post L5-S1 posterior lumbar fusion. 5 lumbar type vertebral bodies. Mode rate degenerative disc disease mid lumbar spine and facet arthropathy. Vertebral body heights are pre served and alignment is maintained. Pelvis: SI joints and pubic are intact. Both hips appear intact. No discrete lytic lesions. Femurs: Bicompartmental degenerative change of both knees, at least moderate in the left medial matthew rtment. No discrete lytic lesion or endosteal scalloping is seen. A broad-based area of cortical thic kening along the lateral aspect of the upper right femoral shaft likely relates to the muscle attachm ent and enthesopathy. IMPRESSION: No suspicious lytic changes to suggest multiple myeloma. [facility], , 12/20/2024 1:34 PM
== END | disposition home or self-care (01) ==
LOC: RADXRMAIN 10:47
PROVIDERS: ATTEND Internal Medicine Hematology & Oncology
DX: D47.2 Monoclonal gammopathy (principal); R63.4 Abnormal weight loss; E03.9 Hypothyroidism, unspecified
CPT/HCPCS: 77075